=== PATIENT | female | born 1955 | race Caucasian/White ===

== ENCOUNTER 2020-12-07 13:17 | Observation (INO) | payer BC, MEDICARE ==
[2020-12-07] MEDS ORDERED: Ondansetron 4 MG/2 ML SDV IVPUSH ONE (13:25)
[2020-12-07] MEDS: Sodium Chloride 0.9% 1,000 ML IV SCH ×2 (13:35→17:35)
--- NOTE | 2020-12-07 13:44 | EDM.PDOC ---
ED HPI GENERAL MEDICAL PROBLEM - General Chief Complaint: General Stated Complaint: nauseous Time Seen by Provider: 12/07/20 13:17 Source of Information: Reports: Patient, EMS History Limitations: Reports: No Limitations - History of Present Illness INITIAL COMMENTS - FREE TEXT/NARRATIVE: Yadira is a 65 year old female who presents per EMS with complaints of sudden onset dizziness, nausea and diaphoresis. [place] from out of town, visiting friends. Was sitting down to eat at local restaurant when had sudden onset of above symptoms. Denies chest pain, shortness of breath, palpitations. No recent fever, sore throat, sinus congestion. No head trauma. Did have a rice krispy bar and 2 diet cokes for breakfast today. Had not yet eaten any lunch. Has not had any vomiting but has been retching. No diarrhea or constipation. No history of dizziness. PMH consists of breast cancer, recent tendon surgery on her left ankle. Onset: Today, Sudden Duration: Minutes:, Constant Location: Reports: Generalized Severity: Severe Improves with: Reports: Rest Worsens with: Reports: Movement Associated Symptoms: Reports: Diaphoresis, Nausea/Vomiting. Denies: Confusion, Chest Pain, Cough, Fever/Chills, Loss of Appetite, Malaise, Shortness of Breath, Syncope, Weakness - Related Data Allergies Allergy/AdvReac Type Severity Reaction Status Date / Time No Known Allergies Allergy Verified 12/07/20 16:17 Past Medical History Cardiovascular History: Reports: Other (See Below) Other Cardiovascular History: tachycardia Gastrointestinal History: Reports: GERD Musculoskeletal History: Reports: Osteoarthritis, Other (See Below) (restless le gs) Social & Family History - Tobacco Use Tobacco Use Status *Q: Unknown Ever Used Tobacco ED ROS GENERAL - Review of Systems Review Of Systems: See Below Constitutional: Reports: Malaise, Diaphoresis. Denies: Fever, Chills, Weakness, Fatigue HEENT: Reports: Vertigo. Denies: Ear Pain, Sinus Problem, Throat Pain, Vision Change Respiratory: Denies: Shortness of Breath, Cough Cardiovascular: Denies: Chest Pain, Edema, Lightheadedness Endocrine: Denies: Fatigue GI/Abdominal: Reports: Nausea. Denies: Abdominal Pain, Vomiting : Reports: No Symptoms Musculoskeletal: Reports: No Symptoms Skin: Reports: Diaphoresis Neurological: Reports: Dizziness. Denies: Headache, Syncope, Weakness Psychiatric: Reports: No Symptoms Hematologic/Lymphatic: Reports: No Symptoms ED EXAM, DIZZINESS - Physical Exam Exam: See Below Exam Limited By: No Limitations General Appearance: Alert, WD/WN, Moderate Distress Eye Exam: Bilateral Eye: EOMI, PERRL Ears: Normal External Exam, Normal TMs Nose: Normal Inspection, Normal Mucosa, No Blood Throat/Mouth: Normal Inspection, Normal Oropharynx Head Exam: Normocephalic Vertigo: constant Neck: Normal Inspection, Supple, Non-Tender Respiratory/Chest: No Respiratory Distress, Lungs Clear, Normal Breath Sounds Cardiovascular: Regular Rate, Rhythm GI/Abdominal: Normal Bowel Sounds, Soft, Non-Tender, Other (retching constantly on arrival) Neurological: Alert, Normal Mood/Affect, Normal Dorsiflexion, CN II-XII Intact, Normal Plantar Flexion, No Motor/Sensory Deficits, Oriented x 3 Extremities: Normal Inspection, No Pedal Edema Skin Exam: Warm, Dry Course - Orders/Labs/Meds Orders: Active Orders 24 hr Category Date Time Status Patient Status Manage Transfer [TRANSFER] Routine ADT 12/07/20 16:13 Active CORONAVIRUS COVID-19 RAPID [MOLEC] Stat Lab 12/07/20 16:18 Ordered Scopolamine [Transderm-Scop] Med 12/07/20 15:25 Active 1.5 mg TRDERM Q72H PRN Sodium Chloride 0.9% [Normal Saline] 1,000 ml Med 12/07/20 13:30 Active IV ASDIRECTED Resuscitation Status Routine Resus Stat 12/07/20 16:14 Ordered Medication Orders Sodium Chloride (Normal Saline) 1,000 mls @ 250 mls/hr IV ASDIRECTED BILLY Last Admin: 12/07/20 13:35 Dose: 250 mls/hr Documented by: DMITRY Scopolamine (Scopolamine 1.5 Mg Transdermal Patch) 1.5 mg TRDERM Q72H PRN PRN Reason: Nausea Last Admin: 12/07/20 15:35 Dose: 1.5 mg Documented by: DMITRY Labs: Laboratory Tests 12/07/20 12/07/20 12/07/20 Range/Units 13:28 13:28 16:00 WBC 11.1 H (4.0-10.0) x10^3/uL RBC 4.66 (4.00-5.50) x10^6/uL Hgb 14.5 (12.0-16.0) g/dL Hct 42.4 (33.0-47.0) % MCV 91.0 (78.0-93.0) fL MCH 31.1 (26.0-32.0) pg MCHC 34.2 (32.0-36.0) g/dL RDW Coeff of [place] 12.7 (10.0-15.0) % Plt Count 295 (130-400) x10^3/uL Add Manual Diff Yes Neutrophils % (Manual) 60 (50-80) % Band Neutrophils % 3 (0-6) % Lymphocytes % (Manual) 24 L (25-50) % Monocytes % (Manual) 8 (2-11) % Eosinophils % (Manual) 5 H (0-4) % Toxic Granulation 1+ slight H Platelet Estimate Adequate Sodium 140 (136-145) mmol/L Potassium 3.8 (3.5-5.1) mmol/L Chloride 103 (98-107) mmol/L Carbon Dioxide 24 (21-32) mmol/L Anion Gap 16.8 H (5-15) mmol/L BUN 13 (7-18) mg/dL Creatinine 0.7 (0.55-1.02) mg/dL Est Cr Clr Drug Dosing TNP Estimated GFR (MDRD) > 60 Glucose 113 H (70-99) mg/dL Calcium 8.7 (8.5-10.1) mg/dL Corrected Calcium 9.1 (8.5-10.1) mg/dL Total Bilirubin 0.5 (0.2-1.0) mg/dL AST 26 (15-37) U/L ALT 29 (14-59) U/L Alkaline Phosphatase 112 (46-116) U/L Troponin I High Sens 4 (<=51) ng/L C-Reactive Protein 0.6 (<=0.9) mg/dL Total Protein 7.1 (6.4-8.2) g/dL Albumin 3.5 (3.4-5.0) g/dL Globulin 3.6 Albumin/Globulin Ratio 0.97 Urine Color Yellow (YELLOW) Urine Appearance Clear (CLEAR) Urine pH 5.5 (5.0-8.0) Ur Specific [place] 1.025 Urine Protein Negative (NEGATIVE) mg/dL Urine Glucose (UA) Negative (NEGATIVE) mg/dL Urine Ketones Negative (NEGATIVE) mg/dL Urine Occult Blood Negative (NEGATIVE) Urine Nitrite Negative (NEGATIVE) Urine Bilirubin Negative (NEGATIVE) Urine Urobilinogen 0.2 (0.2) EU/dL Ur Leukocyte Esterase Negative (NEGATIVE) Meds: Medications Generic Name Dose Route Start Last Admin Trade Name Freq PRN Reason Stop Dose Admin Sodium Chloride 1,000 mls @ 250 mls/hr 12/07/20 13:30 12/07/20 13:35 Normal Saline IV 250 mls/hr ASDIRECTED BILLY Administration Scopolamine 1.5 mg 12/07/20 15:25 12/07/20 15:35 Scopolamine 1.5 Mg Transdermal Patch TRDERM 1.5 mg Q72H PRN Administration Nausea Discontinued Medications Generic Name Dose Route Start Last Admin Trade Name Freq PRN Reason Stop Dose Admin Promethazine HCl 25 mg/ Sodium 101 mls @ 400 mls/hr 12/07/20 13:59 12/07/20 14:08 Chloride IV 12/07/20 14:14 400 mls/hr ONETIME ONE Administration Meclizine HCl 25 mg 12/07/20 15:44 12/07/20 15:49 Meclizine 25 Mg Tab PO 12/07/20 15:45 25 mg ONETIME ONE Administration Ondansetron HCl 4 mg 12/07/20 13:25 12/07/20 13:35 Ondansetron 4 Mg/2 Ml Sdv IVPUSH 12/07/20 13:26 4 mg ONETIME ONE Administration - Re-Assessments/Exams Free Text/Narrative Re-Assessment/Exam: 12/07/20 15:47 Have given Zofran, IV fluids and Phenergan, patient still feeling nauseated and dizzy. Has stopped retching now, were able to get the CT scan of her head. Will give meclizine, place scopolamine patch. 12/07/20 16:19 Patient states nausea is mildly better, still feels dizzy when opens eyes. Will keep observation for IV meds, PT for canalith repositioning, IV fluids. Cardiac monitoring. Repeat labs in am. Patient is in agreement. Departure - Departure Time of Disposition: 16:19 Disposition: Refer to Observation Condition: Fair Clinical Impression: Vertigo - Discharge Information *PRESCRIPTION DRUG MONITORING PROGRAM REVIEWED*: No *COPY OF PRESCRIPTION DRUG MONITORING REPORT IN PATIENT ADOLPH: No Referrals: PCP,Not In Area [Primary Care Provider] - Forms: ED Department Discharge - Problem List & Annotations (1) Vertigo SNOMED Code(s): 130298654 Code(s): R42 - DIZZINESS AND GIDDINESS Status: Acute Priority: High Current Visit: Yes - Problem List Review Problem List Initiated/Reviewed/Updated: Yes - My Orders Last 24 Hours: My Active Orders 12/07/20 13:30 Sodium Chloride 0.9% [Normal Saline] 1,000 ml IV ASDIRECTED 12/07/20 15:25 Scopolamine [Transderm-Scop] 1.5 mg TRDERM Q72H PRN 12/07/20 16:13 Patient Status Manage Transfer [TRANSFER] Routine 12/07/20 16:14 Resuscitation Status Routine 12/07/20 16:18 CORONAVIRUS COVID-19 RAPID [MOLEC] Stat - Assessment/Plan Admission H&P: Please use this note as an admission H&P Last 24 Hours: My Active Orders 12/07/20 13:30 Sodium Chloride 0.9% [Normal Saline] 1,000 ml IV ASDIRECTED 12/07/20 15:25 Scopolamine [Transderm-Scop] 1.5 mg TRDERM Q72H PRN 12/07/20 16:13 Patient Status Manage Transfer [TRANSFER] Routine 12/07/20 16:14 Resuscitation Status Routine 12/07/20 16:18 CORONAVIRUS COVID-19 RAPID [MOLEC] Stat Assessment:: Vertigo Plan: IV nausea meds IV fluids Cardiac monitoring PT for canalith repositioning
[2020-12-07 13:52] LABS: CHLORIDE,CL 103 mmol/L (98-107); SODIUM,NA 140 mmol/L (136-145)
[2020-12-07 13:54] LABS: ANION GAP 16.8 mmol/L (5-15)
[2020-12-07] MEDS ORDERED: Promethazine 25 MG in Sodium Chloride 0.9% 100 ML IV ONE (13:59)
[2020-12-07] MEDS ORDERED: Scopolamine 1.5 MG Transdermal Patch TRDERM PRN (15:25)
[2020-12-07] MEDS ORDERED: Meclizine 25 MG Tab PO ONE (15:44)
--- NOTE | 2020-12-07 16:05 | CT ---
[id number] CT/CT Head WO IV EXAM: CT Head WO IV CLINICAL DATA: DIZZINESS. COMPARISON STUDY: None FINDINGS: No intracranial hemorrhage, extra-axial fluid collection, mass, or acute ischemia. Generalized parenchymal atrophy with scattered areas of nonspecific white matter disease, commonly seen as sequela of chronic microvascular ischemia. Soft tissues are unremarkable. Paranasal sinuses and mastoid air cells are clear. IMPRESSION: No acute intracranial findings. Brock Aguirre DO 12/07/20 0567 Thank you for allowing us to participate in the care of your patient.
--- NOTE | 2020-12-07 16:07 | CR ---
[id number] RAD/RAD Chest PA And Lateral EXAM: RAD Chest PA And Lateral INDICATION: DIZZINESS. COMPARISON: None. DISCUSSION: Cardiomediastinal silhouette is normal in size and contour. No infiltrate, effusion, pneumothorax, or edema. Pulmonary hyperinflation. Surgical changes of the right shoulder. IMPRESSION: No acute cardiopulmonary abnormality. Brock Aguirre DO 12/07/20 2126 Thank you for allowing us to participate in the care of your patient.
[2020-12-07] MEDS ORDERED: Acetaminophen 325 MG Tab PO PRN (17:56)
[2020-12-07] MEDS ORDERED: Temazepam 15 MG Cap PO PRN (17:56)
[2020-12-07] MEDS ORDERED: Sodium Chloride 0.9% 10 ML Syringe FLUSH PRN (17:56)
[2020-12-07] MEDS ORDERED: Ondansetron 4 MG/2 ML SDV IV PRN (17:56)
[2020-12-07] MEDS ORDERED: Ondansetron 4 MG Tab.DIS PO PRN (17:56)
[2020-12-07] MEDS ORDERED: Diazepam 2 MG Tab PO PRN (17:56)
[2020-12-07] MEDS: Meclizine 25 MG Tab PO SCH (19:48)
[2020-12-08 07:34] LABS: CHLORIDE,CL 108 mmol/L (98-107); SODIUM,NA 143 mmol/L (136-145)
[2020-12-08 07:35] LABS: ANION GAP 13.2 mmol/L (5-15)
--- NOTE | 2020-12-08 09:02 | PCM.PN ---
- General Info Date of Service: 12/08/20 Admission Dx/Problem (Free Text): 1)Vertigo Subjective Update: Isabel is feeling better this AM and reports dizziness has pretty much resolved other than a couple episodes, last one being around 0400. No concerns. She is anxious to get discharged. - Review of Systems General: Reports: No Symptoms HEENT: Reports: No Symptoms Pulmonary: Reports: No Symptoms Cardiovascular: Reports: No Symptoms Gastrointestinal: Reports: No Symptoms Genitourinary: Reports: No Symptoms Musculoskeletal: Reports: No Symptoms Skin: Reports: No Symptoms Neurological: Reports: Dizziness (improving) Psychiatric: Reports: No Symptoms - Patient Data Vitals - Most Recent: Last Vital Signs Temp 36.6 C 12/08/20 05:24 Pulse 59 L 12/08/20 05:24 Resp 18 12/08/20 05:24 BP 91/44 L 12/08/20 05:24 Pulse Ox 94 L 12/08/20 05:24 Weight - Most Recent: 95.028 kg I&O - Last 24 Hours: Intake & Output 12/07/20 12/08/20 12/08/20 22:59 06:59 14:59 Intake Total 700 Output Total 800 1400 Balance -100 -1400 Lab Results Last 24 Hours: Laboratory Results - last 24 hr 12/07/20 12/07/20 12/07/20 Range/Units 13:28 13:28 16:00 WBC 11.1 H (4.0-10.0) x10^3/uL RBC 4.66 (4.00-5.50) x10^6/uL Hgb 14.5 (12.0-16.0) g/dL Hct 42.4 (33.0-47.0) % MCV 91.0 (78.0-93.0) fL MCH 31.1 (26.0-32.0) pg MCHC 34.2 (32.0-36.0) g/dL RDW Coeff of [place] 12.7 (10.0-15.0) % Plt Count 295 (130-400) x10^3/uL Neut % (Auto) (50.0-80.0) % Lymph % (Auto) (25.0-50.0) % [place] % (Auto) (2.0-11.0) % Eos % (Auto) (0.0-4.0) % Baso % (Auto) (0.2-1.2) % Add Manual Diff Yes Neutrophils % (Manual) 60 (50-80) % Band Neutrophils % 3 (0-6) % Lymphocytes % (Manual) 24 L (25-50) % Monocytes % (Manual) 8 (2-11) % Eosinophils % (Manual) 5 H (0-4) % Toxic Granulation 1+ slight H Platelet Estimate Adequate Sodium 140 (136-145) mmol/L Potassium 3.8 (3.5-5.1) mmol/L Chloride 103 (98-107) mmol/L Carbon Dioxide 24 (21-32) mmol/L Anion Gap 16.8 H (5-15) mmol/L BUN 13 (7-18) mg/dL Creatinine 0.7 (0.55-1.02) mg/dL Est Cr Clr Drug Dosing TNP Estimated GFR (MDRD) > 60 Glucose 113 H (70-99) mg/dL Calcium 8.7 (8.5-10.1) mg/dL Corrected Calcium 9.1 (8.5-10.1) mg/dL Total Bilirubin 0.5 (0.2-1.0) mg/dL AST 26 (15-37) U/L ALT 29 (14-59) U/L Alkaline Phosphatase 112 (46-116) U/L Troponin I High Sens 4 (<=51) ng/L C-Reactive Protein 0.6 (<=0.9) mg/dL Total Protein 7.1 (6.4-8.2) g/dL Albumin 3.5 (3.4-5.0) g/dL Globulin 3.6 Albumin/Globulin Ratio 0.97 Urine Color Yellow (YELLOW) Urine Appearance Clear (CLEAR) Urine pH 5.5 (5.0-8.0) Ur Specific [place] 1.025 Urine Protein Negative (NEGATIVE) mg/dL Urine Glucose (UA) Negative (NEGATIVE) mg/dL Urine Ketones Negative (NEGATIVE) mg/dL Urine Occult Blood Negative (NEGATIVE) Urine Nitrite Negative (NEGATIVE) Urine Bilirubin Negative (NEGATIVE) Urine Urobilinogen 0.2 (0.2) EU/dL Ur Leukocyte Esterase Negative (NEGATIVE) SARS CoV-2 RNA Rapid FERCHO (NEGATIVE) 12/07/20 12/08/20 12/08/20 Range/Units 16:15 06:15 06:15 WBC 8.6 (4.0-10.0) x10^3/uL RBC 4.20 (4.00-5.50) x10^6/uL Hgb 12.9 D (12.0-16.0) g/dL Hct 39.4 (33.0-47.0) % MCV 93.8 H (78.0-93.0) fL MCH 30.7 (26.0-32.0) pg MCHC 32.7 (32.0-36.0) g/dL RDW Coeff of [place] 12.8 (10.0-15.0) % Plt Count 245 (130-400) x10^3/uL Neut % (Auto) 58.2 (50.0-80.0) % Lymph % (Auto) 26.7 (25.0-50.0) % [place] % (Auto) 10.1 (2.0-11.0) % Eos % (Auto) 4.4 H (0.0-4.0) % Baso % (Auto) 0.6 (0.2-1.2) % Add Manual Diff Neutrophils % (Manual) (50-80) % Band Neutrophils % (0-6) % Lymphocytes % (Manual) (25-50) % Monocytes % (Manual) (2-11) % Eosinophils % (Manual) (0-4) % Toxic Granulation Platelet Estimate Sodium 143 (136-145) mmol/L Potassium 4.2 (3.5-5.1) mmol/L Chloride 108 H (98-107) mmol/L Carbon Dioxide 26 (21-32) mmol/L Anion Gap 13.2 (5-15) mmol/L BUN 10 (7-18) mg/dL Creatinine 0.7 (0.55-1.02) mg/dL Est Cr Clr Drug Dosing 70.18 Estimated GFR (MDRD) > 60 Glucose 90 (70-99) mg/dL Calcium 8.7 (8.5-10.1) mg/dL Corrected Calcium (8.5-10.1) mg/dL Total Bilirubin (0.2-1.0) mg/dL AST (15-37) U/L ALT (14-59) U/L Alkaline Phosphatase (46-116) U/L Troponin I High Sens (<=51) ng/L C-Reactive Protein 0.4 (<=0.9) mg/dL Total Protein (6.4-8.2) g/dL Albumin (3.4-5.0) g/dL Globulin Albumin/Globulin Ratio Urine Color (YELLOW) Urine Appearance (CLEAR) Urine pH (5.0-8.0) Ur Specific [place] Urine Protein (NEGATIVE) mg/dL Urine Glucose (UA) (NEGATIVE) mg/dL Urine Ketones (NEGATIVE) mg/dL Urine Occult Blood (NEGATIVE) Urine Nitrite (NEGATIVE) Urine Bilirubin (NEGATIVE) Urine Urobilinogen (0.2) EU/dL Ur Leukocyte Esterase (NEGATIVE) SARS CoV-2 RNA Rapid FERCHO Negative (NEGATIVE) Med Orders - Current: Current Medications Acetaminophen (Acetaminophen 325 Mg Tab) 650 mg PO Q4H PRN PRN Reason: Pain (Mild 1-3)/fever Diazepam (Diazepam 2 Mg Tab) 2 mg PO Q6H PRN PRN Reason: Dizziness Sodium Chloride (Normal Saline) 1,000 mls @ 125 mls/hr IV ASDIRECTED BILLY Last Admin: 12/07/20 17:35 Dose: 250 mls/hr Documented by: Meclizine HCl (Meclizine 25 Mg Tab) 25 mg PO TID BILLY Last Admin: 12/07/20 19:48 Dose: 25 mg Documented by: Ondansetron HCl (Ondansetron 4 Mg Tab.Dis) 4 mg PO Q6H PRN PRN Reason: nausea, able to take PO Ondansetron HCl (Ondansetron 4 Mg/2 Ml Sdv) 4 mg IV Q6H PRN PRN Reason: Nausea/Vomiting Scopolamine (Scopolamine 1.5 Mg Transdermal Patch) 1.5 mg TRDERM Q72H PRN PRN Reason: Nausea Last Admin: 12/07/20 15:35 Dose: 1.5 mg Documented by: Sodium Chloride (Sodium Chloride 0.9% 10 Ml Syringe) 10 ml FLUSH ASDIRECTED PRN PRN Reason: Keep Vein Open Temazepam (Temazepam 15 Mg Cap) 15 mg PO BEDTIME PRN PRN Reason: Sleep Discontinued Medications Promethazine HCl 25 mg/ Sodium (Chloride) 101 mls @ 400 mls/hr IV ONETIME ONE Stop: 12/07/20 14:14 Last Admin: 12/07/20 14:08 Dose: 400 mls/hr Documented by: Meclizine HCl (Meclizine 25 Mg Tab) 25 mg PO ONETIME ONE Stop: 12/07/20 15:45 Last Admin: 12/07/20 15:49 Dose: 25 mg Documented by: Ondansetron HCl (Ondansetron 4 Mg/2 Ml Sdv) 4 mg IVPUSH ONETIME ONE Stop: 12/07/20 13:26 Last Admin: 12/07/20 13:35 Dose: 4 mg Documented by: - Exam General: Alert, Oriented HEENT: Pupils Equal, Pupils Reactive, Mucous Membr. Moist/[place], Other (No vystagmus appreciated) Neck: Supple Lungs: Clear to Auscultation Cardiovascular: Regular Rate, Regular Rhythm GI/Abdominal Exam: Normal Bowel Sounds, Soft, Non-Tender (Female) Exam: Deferred Back Exam: Normal Inspection Extremities: Normal Inspection, No Pedal Edema, Normal Capillary Refill Skin: Warm, Dry, Intact Neurological: No New Focal Deficit Psy/Mental Status: Alert, Normal Affect, Normal Mood - Patient Data Lab Results Last 24 hrs: Laboratory Results - last 24 hr 12/07/20 12/07/20 12/07/20 Range/Units 13:28 13:28 16:00 WBC 11.1 H (4.0-10.0) x10^3/uL RBC 4.66 (4.00-5.50) x10^6/uL Hgb 14.5 (12.0-16.0) g/dL Hct 42.4 (33.0-47.0) % MCV 91.0 (78.0-93.0) fL MCH 31.1 (26.0-32.0) pg MCHC 34.2 (32.0-36.0) g/dL RDW Coeff of [place] 12.7 (10.0-15.0) % Plt Count 295 (130-400) x10^3/uL Neut % (Auto) (50.0-80.0) % Lymph % (Auto) (25.0-50.0) % [place] % (Auto) (2.0-11.0) % Eos % (Auto) (0.0-4.0) % Baso % (Auto) (0.2-1.2) % Add Manual Diff Yes Neutrophils % (Manual) 60 (50-80) % Band Neutrophils % 3 (0-6) % Lymphocytes % (Manual) 24 L (25-50) % Monocytes % (Manual) 8 (2-11) % Eosinophils % (Manual) 5 H (0-4) % Toxic Granulation 1+ slight H Platelet Estimate Adequate Sodium 140 (136-145) mmol/L Potassium 3.8 (3.5-5.1) mmol/L Chloride 103 (98-107) mmol/L Carbon Dioxide 24 (21-32) mmol/L Anion Gap 16.8 H (5-15) mmol/L BUN 13 (7-18) mg/dL Creatinine 0.7 (0.55-1.02) mg/dL Est Cr Clr Drug Dosing TNP Estimated GFR (MDRD) > 60 Glucose 113 H (70-99) mg/dL Calcium 8.7 (8.5-10.1) mg/dL Corrected Calcium 9.1 (8.5-10.1) mg/dL Total Bilirubin 0.5 (0.2-1.0) mg/dL AST 26 (15-37) U/L ALT 29 (14-59) U/L Alkaline Phosphatase 112 (46-116) U/L Troponin I High Sens 4 (<=51) ng/L C-Reactive Protein 0.6 (<=0.9) mg/dL Total Protein 7.1 (6.4-8.2) g/dL Albumin 3.5 (3.4-5.0) g/dL Globulin 3.6 Albumin/Globulin Ratio 0.97 Urine Color Yellow (YELLOW) Urine Appearance Clear (CLEAR) Urine pH 5.5 (5.0-8.0) Ur Specific [place] 1.025 Urine Protein Negative (NEGATIVE) mg/dL Urine Glucose (UA) Negative (NEGATIVE) mg/dL Urine Ketones Negative (NEGATIVE) mg/dL Urine Occult Blood Negative (NEGATIVE) Urine Nitrite Negative (NEGATIVE) Urine Bilirubin Negative (NEGATIVE) Urine Urobilinogen 0.2 (0.2) EU/dL Ur Leukocyte Esterase Negative (NEGATIVE) SARS CoV-2 RNA Rapid FERCHO (NEGATIVE) 12/07/20 12/08/20 12/08/20 Range/Units 16:15 06:15 06:15 WBC 8.6 (4.0-10.0) x10^3/uL RBC 4.20 (4.00-5.50) x10^6/uL Hgb 12.9 D (12.0-16.0) g/dL Hct 39.4 (33.0-47.0) % MCV 93.8 H (78.0-93.0) fL MCH 30.7 (26.0-32.0) pg MCHC 32.7 (32.0-36.0) g/dL RDW Coeff of [place] 12.8 (10.0-15.0) % Plt Count 245 (130-400) x10^3/uL Neut % (Auto) 58.2 (50.0-80.0) % Lymph % (Auto) 26.7 (25.0-50.0) % [place] % (Auto) 10.1 (2.0-11.0) % Eos % (Auto) 4.4 H (0.0-4.0) % Baso % (Auto) 0.6 (0.2-1.2) % Add Manual Diff Neutrophils % (Manual) (50-80) % Band Neutrophils % (0-6) % Lymphocytes % (Manual) (25-50) % Monocytes % (Manual) (2-11) % Eosinophils % (Manual) (0-4) % Toxic Granulation Platelet Estimate Sodium 143 (136-145) mmol/L Potassium 4.2 (3.5-5.1) mmol/L Chloride 108 H (98-107) mmol/L Carbon Dioxide 26 (21-32) mmol/L Anion Gap 13.2 (5-15) mmol/L BUN 10 (7-18) mg/dL Creatinine 0.7 (0.55-1.02) mg/dL Est Cr Clr Drug Dosing 70.18 Estimated GFR (MDRD) > 60 Glucose 90 (70-99) mg/dL Calcium 8.7 (8.5-10.1) mg/dL Corrected Calcium (8.5-10.1) mg/dL Total Bilirubin (0.2-1.0) mg/dL AST (15-37) U/L ALT (14-59) U/L Alkaline Phosphatase (46-116) U/L Troponin I High Sens (<=51) ng/L C-Reactive Protein 0.4 (<=0.9) mg/dL Total Protein (6.4-8.2) g/dL Albumin (3.4-5.0) g/dL Globulin Albumin/Globulin Ratio Urine Color (YELLOW) Urine Appearance (CLEAR) Urine pH (5.0-8.0) Ur Specific [place] Urine Protein (NEGATIVE) mg/dL Urine Glucose (UA) (NEGATIVE) mg/dL Urine Ketones (NEGATIVE) mg/dL Urine Occult Blood (NEGATIVE) Urine Nitrite (NEGATIVE) Urine Bilirubin (NEGATIVE) Urine Urobilinogen (0.2) EU/dL Ur Leukocyte Esterase (NEGATIVE) SARS CoV-2 RNA Rapid FERCHO Negative (NEGATIVE) Result Diagrams: 12/08/20 06:15 12/08/20 06:15 Sepsis Event Note - Evaluation Sepsis Screening Result: No Definite Risk - Focused Exam Vital Signs: Vital Signs Temp Pulse Pulse Resp BP Pulse Ox 12/08/20 05:24 36.6 C 59 L 18 91/44 L 94 L 12/08/20 03:14 62 96/52 L 12/08/20 02:00 36.6 C 67 20 84/34 L 93 L 12/07/20 22:00 36.8 C 69 20 101/46 L 91 L - Problem List & Annotations (1) Vertigo SNOMED Code(s): 002312215 Code(s): R42 - DIZZINESS AND GIDDINESS Status: Acute Priority: High Current Visit: Yes Annotation/Comment:: -Symptoms improved -Will have patient see PT while she is here, prior to discharge -Will send home with Meclizine for prn use -Plan discharge to home -Continue follow up with PCP when she returns [facility] - Problem List Review Problem List Initiated/Reviewed/Updated: Yes - My Orders Last 24 Hours: My Active Orders 12/08/20 Lunch Regular Diet [DIET] - Assessment Assessment:: 1)Vertigo - Plan Plan:: -Discharge to home after PT eval
--- NOTE | 2020-12-08 09:13 | PCM.DCSUM1 ---
Discharge Summary - Hospital Course Free Text/Narrative:: Isabel is a 65 y/o female who had presented to the ER with acute onset of dizziness. She was evaluated with labs and a CT in the ER and then treated with IV fluids, antiemetics, meclizine, and scopalimine. She was admitted to Observation and improved overnight. Diagnosis: Stroke: No Modified Kit Scale: Mod.Disablility Requiring Some Help,Able to Walk Without Assistance Modified Cornucopia Scale Score: 3 - Discharge Data Discharge Date: 12/08/20 Discharge Disposition: Home, Self-Care 01 Condition: Good - Referral to Home Health Primary Care Physician: PCP Not In Area - Discharge Diagnosis/Problem(s) (1) Vertigo SNOMED Code(s): 604162785 ICD Code: R42 - DIZZINESS AND GIDDINESS Status: Acute Priority: High Current Visit: Yes Problem Details: -Symptoms improved -Will have patient see PT while she is here, prior to discharge -Will send home with Meclizine for prn use -Plan discharge to home -Continue follow up with PCP when she returns [facility] - Patient Summary/Data Consults: Consultations 12/07/20 17:56 PT Evaluation and Treatment [CONS] Routine - Patient Instructions Diet: Usual Diet as Tolerated Activity: As Tolerated Activity, Other: See further instructions per PT - Discharge Plan *PRESCRIPTION DRUG MONITORING PROGRAM REVIEWED*: No *COPY OF PRESCRIPTION DRUG MONITORING REPORT IN PATIENT ADOLPH: No Prescriptions/Med Rec: Meclizine [Antivert] 25 mg PO TID PRN #30 tablet PRN Reason: Dizziness Ondansetron [Zofran ODT] 4 mg PO Q6H PRN #12 tab.dis PRN Reason: nausea, able to take PO Home Medications: Home Meds Acetaminophen [Tylenol Extra Strength] 1,000 mg PO DAILY 12/07/20 [History] Aspirin [Ecotrin EC] 325 mg PO DAILY 12/07/20 [History] Calcium Carbonate/Vitamin D3 [Calcium 600-D3 20Mcg(800 Unit)] 1 tab PO DAILY 12/07/20 [History] Celecoxib 200 mg PO DAILY 12/07/20 [History] Cholecalciferol (Vitamin D3) [Vitamin D3] 5,000 units PO DAILY 12/07/20 [History] Fish Oil/[place]-3 Fatty Acids [Fish Oil 1,000 MG] 1,000 mg PO DAILY 12/07/20 [History] Magnesium Oxide [Magnesium] 250 mg PO DAILY 12/07/20 [History] Metoprolol Tartrate 25 mg PO BEDTIME 12/07/20 [History] Multivitamin [Multivitamins] 1 each PO DAILY 12/07/20 [History] Omeprazole Magnesium [Prilosec Otc] 20 mg PO DAILY 12/07/20 [History] Pramipexole Di-HCl [Pramipexole Dihydrochloride] 0.25 mg PO 1430,2000 12/07/20 [History] Vitamin B Complex [B Complex] 1 tab PO DAILY 12/07/20 [History] Meclizine [Antivert] 25 mg PO TID PRN #30 tablet 12/08/20 [Rx] Ondansetron [Zofran ODT] 4 mg PO Q6H PRN #12 tab.dis 12/08/20 [Rx] Pramipexole [Mirapex] 0.125 mg PO DAILY 12/08/20 [History] Forms: ED Department Discharge Referrals: PCP,Not In Area [Primary Care Provider] - - Discharge Summary/Plan Comment DC Time >30 min.: Yes - General Info Admission Dx/Problem (Free Text: 1)Vertigo Subjective Update: Isabel is feeling better this AM and reports dizziness has pretty much resolved other than a couple episodes, last one being around 0400. No concerns. She is anxious to get discharged. - Review of Systems General: Reports: No Symptoms HEENT: Reports: No Symptoms Pulmonary: Reports: No Symptoms Cardiovascular: Reports: No Symptoms Gastrointestinal: Reports: No Symptoms Genitourinary: Reports: No Symptoms Musculoskeletal: Reports: No Symptoms Skin: Reports: No Symptoms Neurological: Reports: Dizziness (improving) Psychiatric: Reports: No Symptoms - Patient Data Vitals - Most Recent: Last Vital Signs Temp 36.6 C 12/08/20 05:24 Pulse 59 L 12/08/20 05:24 Resp 18 12/08/20 05:24 BP 91/44 L 12/08/20 05:24 Pulse Ox 94 L 12/08/20 05:24 Weight - Most Recent: 95.028 kg I&O - Last 24 hours: Intake & Output 12/07/20 12/08/20 12/08/20 22:59 06:59 14:59 Intake Total 700 Output Total 800 1400 Balance -100 -1400 Lab Results - Last 24 hrs: Laboratory Results - last 24 hr 12/07/20 12/07/20 12/07/20 Range/Units 13:28 13:28 16:00 WBC 11.1 H (4.0-10.0) x10^3/uL RBC 4.66 (4.00-5.50) x10^6/uL Hgb 14.5 (12.0-16.0) g/dL Hct 42.4 (33.0-47.0) % MCV 91.0 (78.0-93.0) fL MCH 31.1 (26.0-32.0) pg MCHC 34.2 (32.0-36.0) g/dL RDW Coeff of [place] 12.7 (10.0-15.0) % Plt Count 295 (130-400) x10^3/uL Neut % (Auto) (50.0-80.0) % Lymph % (Auto) (25.0-50.0) % [place] % (Auto) (2.0-11.0) % Eos % (Auto) (0.0-4.0) % Baso % (Auto) (0.2-1.2) % Add Manual Diff Yes Neutrophils % (Manual) 60 (50-80) % Band Neutrophils % 3 (0-6) % Lymphocytes % (Manual) 24 L (25-50) % Monocytes % (Manual) 8 (2-11) % Eosinophils % (Manual) 5 H (0-4) % Toxic Granulation 1+ slight H Platelet Estimate Adequate Sodium 140 (136-145) mmol/L Potassium 3.8 (3.5-5.1) mmol/L Chloride 103 (98-107) mmol/L Carbon Dioxide 24 (21-32) mmol/L Anion Gap 16.8 H (5-15) mmol/L BUN 13 (7-18) mg/dL Creatinine 0.7 (0.55-1.02) mg/dL Est Cr Clr Drug Dosing TNP Estimated GFR (MDRD) > 60 Glucose 113 H (70-99) mg/dL Calcium 8.7 (8.5-10.1) mg/dL Corrected Calcium 9.1 (8.5-10.1) mg/dL Total Bilirubin 0.5 (0.2-1.0) mg/dL AST 26 (15-37) U/L ALT 29 (14-59) U/L Alkaline Phosphatase 112 (46-116) U/L Troponin I High Sens 4 (<=51) ng/L C-Reactive Protein 0.6 (<=0.9) mg/dL Total Protein 7.1 (6.4-8.2) g/dL Albumin 3.5 (3.4-5.0) g/dL Globulin 3.6 Albumin/Globulin Ratio 0.97 Urine Color Yellow (YELLOW) Urine Appearance Clear (CLEAR) Urine pH 5.5 (5.0-8.0) Ur Specific [place] 1.025 Urine Protein Negative (NEGATIVE) mg/dL Urine Glucose (UA) Negative (NEGATIVE) mg/dL Urine Ketones Negative (NEGATIVE) mg/dL Urine Occult Blood Negative (NEGATIVE) Urine Nitrite Negative (NEGATIVE) Urine Bilirubin Negative (NEGATIVE) Urine Urobilinogen 0.2 (0.2) EU/dL Ur Leukocyte Esterase Negative (NEGATIVE) SARS CoV-2 RNA Rapid FERCHO (NEGATIVE) 12/07/20 12/08/20 12/08/20 Range/Units 16:15 06:15 06:15 WBC 8.6 (4.0-10.0) x10^3/uL RBC 4.20 (4.00-5.50) x10^6/uL Hgb 12.9 D (12.0-16.0) g/dL Hct 39.4 (33.0-47.0) % MCV 93.8 H (78.0-93.0) fL MCH 30.7 (26.0-32.0) pg MCHC 32.7 (32.0-36.0) g/dL RDW Coeff of [place] 12.8 (10.0-15.0) % Plt Count 245 (130-400) x10^3/uL Neut % (Auto) 58.2 (50.0-80.0) % Lymph % (Auto) 26.7 (25.0-50.0) % [place] % (Auto) 10.1 (2.0-11.0) % Eos % (Auto) 4.4 H (0.0-4.0) % Baso % (Auto) 0.6 (0.2-1.2) % Add Manual Diff Neutrophils % (Manual) (50-80) % Band Neutrophils % (0-6) % Lymphocytes % (Manual) (25-50) % Monocytes % (Manual) (2-11) % Eosinophils % (Manual) (0-4) % Toxic Granulation Platelet Estimate Sodium 143 (136-145) mmol/L Potassium 4.2 (3.5-5.1) mmol/L Chloride 108 H (98-107) mmol/L Carbon Dioxide 26 (21-32) mmol/L Anion Gap 13.2 (5-15) mmol/L BUN 10 (7-18) mg/dL Creatinine 0.7 (0.55-1.02) mg/dL Est Cr Clr Drug Dosing 70.18 Estimated GFR (MDRD) > 60 Glucose 90 (70-99) mg/dL Calcium 8.7 (8.5-10.1) mg/dL Corrected Calcium (8.5-10.1) mg/dL Total Bilirubin (0.2-1.0) mg/dL AST (15-37) U/L ALT (14-59) U/L Alkaline Phosphatase (46-116) U/L Troponin I High Sens (<=51) ng/L C-Reactive Protein 0.4 (<=0.9) mg/dL Total Protein (6.4-8.2) g/dL Albumin (3.4-5.0) g/dL Globulin Albumin/Globulin Ratio Urine Color (YELLOW) Urine Appearance (CLEAR) Urine pH (5.0-8.0) Ur Specific [place] Urine Protein (NEGATIVE) mg/dL Urine Glucose (UA) (NEGATIVE) mg/dL Urine Ketones (NEGATIVE) mg/dL Urine Occult Blood (NEGATIVE) Urine Nitrite (NEGATIVE) Urine Bilirubin (NEGATIVE) Urine Urobilinogen (0.2) EU/dL Ur Leukocyte Esterase (NEGATIVE) SARS CoV-2 RNA Rapid FERCHO Negative (NEGATIVE) Med Orders - Current: Current Medications Acetaminophen (Acetaminophen 325 Mg Tab) 650 mg PO Q4H PRN PRN Reason: Pain (Mild 1-3)/fever Diazepam (Diazepam 2 Mg Tab) 2 mg PO Q6H PRN PRN Reason: Dizziness Sodium Chloride (Normal Saline) 1,000 mls @ 125 mls/hr IV ASDIRECTED BILLY Last Admin: 12/07/20 17:35 Dose: 250 mls/hr Documented by: Meclizine HCl (Meclizine 25 Mg Tab) 25 mg PO TID BILLY Last Admin: 12/07/20 19:48 Dose: 25 mg Documented by: Ondansetron HCl (Ondansetron 4 Mg Tab.Dis) 4 mg PO Q6H PRN PRN Reason: nausea, able to take PO Ondansetron HCl (Ondansetron 4 Mg/2 Ml Sdv) 4 mg IV Q6H PRN PRN Reason: Nausea/Vomiting Scopolamine (Scopolamine 1.5 Mg Transdermal Patch) 1.5 mg TRDERM Q72H PRN PRN Reason: Nausea Last Admin: 12/07/20 15:35 Dose: 1.5 mg Documented by: Sodium Chloride (Sodium Chloride 0.9% 10 Ml Syringe) 10 ml FLUSH ASDIRECTED PRN PRN Reason: Keep Vein Open Temazepam (Temazepam 15 Mg Cap) 15 mg PO BEDTIME PRN PRN Reason: Sleep Discontinued Medications Promethazine HCl 25 mg/ Sodium (Chloride) 101 mls @ 400 mls/hr IV ONETIME ONE Stop: 12/07/20 14:14 Last Admin: 12/07/20 14:08 Dose: 400 mls/hr Documented by: Meclizine HCl (Meclizine 25 Mg Tab) 25 mg PO ONETIME ONE Stop: 12/07/20 15:45 Last Admin: 12/07/20 15:49 Dose: 25 mg Documented by: Ondansetron HCl (Ondansetron 4 Mg/2 Ml Sdv) 4 mg IVPUSH ONETIME ONE Stop: 12/07/20 13:26 Last Admin: 12/07/20 13:35 Dose: 4 mg Documented by: - Exam General: Reports: Alert, Oriented HEENT: Reports: Pupils Equal, Mucous Membr. Moist/[place], Other (No nystagmus) Lungs: Reports: Clear to Auscultation, Normal Respiratory Effort Cardiovascular: Reports: Regular Rate, Regular Rhythm GI/Abdominal Exam: Normal Bowel Sounds, Soft, Non-Tender (Female) Exam: Deferred Rectal (Female) Exam: Deferred Back Exam: Reports: Normal Inspection Extremities: Normal Inspection, Normal Range of Motion, Normal Capillary Refill Skin: Reports: Warm, Dry, Intact Neurological: Reports: No New Focal Deficit Psy/Mental Status: Reports: Alert, Normal Affect, Normal Mood
[2020-12-08] MEDS: Meclizine 25 MG Tab PO SCH ×2 (10:12→11:46)
[2020-12-08] MEDS ORDERED: Pramipexole 0.125 MG Tab PO SCH (11:15)
[2020-12-08] MEDS ORDERED: Celecoxib 100 MG Cap PO SCH (11:15)
[2020-12-08] MEDS ORDERED: Omeprazole 20 MG Cap.CR PO SCH (12:00)
== END 2020-12-08 13:10 | disposition home or self-care (01) ==
LOC: VM.ED 13:17 → VM.MS 16:13
PROVIDERS: ADMIT Physician Assistant Medical; ATTEND Physician Assistant Medical
DX: R42 Dizziness and giddiness (principal); K21.9 Gastro-esophageal reflux disease without esophagitis; Z20.822 Contact with and (suspected) exposure to COVID-19
CPT/HCPCS: 36415; 70450; 71046; 80048; 80053; 81003; 84484; 85025; 86140; 96365; 96375; 97161-GP; 99285-25; A9270-GY; G0378; J2405; J2550; J7030; U0002